=== PATIENT | male | born 1945 | race Two or more races ===

== ENCOUNTER 2016-07-22 20:37 | Emergency (ER) | payer MEDICARE, MEDICAID ==
[~2016-07-22 20:37] MED LIST: COZAAR25 M1 PO; FLEXERIL10 MG PO; FUROSEMIDE40 MG PO; GABAPENTIN600 MG PO; HUMALOG100 U/ML SQ; HUMULIN R100 UNITS/ SC; HYDROCODON-ACE1 EA16 PO; HYDROXYZINE HCL25 M1 PO; INVOKANA100 MG PO; LANTUS100 U/ML SC; LANTUS100 UNITS/ SC; LASIX40 M1 PO; LASIX40 MG PO; LINZESS145 MC1 PO; LISINOPRIL20 MG PO; LOTRISONE CREAM15 GM TP; NEURONTIN300 MG PO; NEURONTIN600 M1 PO; NORCO 10-325 T1 EACH PO; NORCO 10/3251 TAB PO; NORCO 5/325 TAB1 TAB PO; OMEPRAZOLE MAGN20 M1 PO; OMEPRAZOLE20 MG PO; PRILOSEC20 MG PO; PROAIR HFA8.5 GM INH; ULTRAM50 M1 PO; VENTOLIN HFA18 GM IH; VICODIN 5/500 T1 TAB PO; ZANAFLEX4 M2 PO; ZOFRAN ODT4 MG/UDTAB PO; gabapentin; ibuprofen
== END 2016-07-22 22:45 | disposition left against medical advice (07) ==
LOC: EDMED 20:37
DX: K59.00 Constipation, unspecified (principal); Z53.21 Procedure and treatment not carried out due to patient leaving prior to being seen by health care provider